=== PATIENT | female | born 1935 | race Two or more races ===

== ENCOUNTER 2022-07-10 06:00 | Day surgery (SDC) | payer OTHER ==
[~2022-07-10] VITALS: Ht 154.9 cm; Wt 63.5 kg
[~2022-07-10 06:00] MED LIST: METFORMIN HCL500 MG PO; VERAP PO
== END 2022-07-10 18:00 | disposition home or self-care (01) ==
LOC: CIR.AMB 06:00
PROVIDERS: ATTEND Surgery
DX: C50.112 Malignant neoplasm of central portion of left female breast (principal); Z17.0 Estrogen receptor positive status [ER+]; R59.0 Localized enlarged lymph nodes; Z20.822 Contact with and (suspected) exposure to COVID-19; I10 Essential (primary) hypertension; Z87.891 Personal history of nicotine dependence; E11.9 Type 2 diabetes mellitus without complications; Z79.84 Long term (current) use of oral hypoglycemic drugs
CPT/HCPCS: 19301; 19281; 38525; 78195; L8699; A9541